=== PATIENT | male | born 1995 | race African-American/Black ===

== ENCOUNTER 2017-05-21 15:14 | Emergency (ER) | payer OTHER ==
--- NOTE | 2017-05-21 16:03 | REP ---
Head CT without contrast: History: Trauma. Comparison study: No comparison. CT findings: Bone window settings demonstrate an intact bony calvarium. There is no evidence of skull fracture or incidental bony calvarial lesion. The visualized paranasal sinuses appear clear. No intraorbital abnormality is seen. On soft tissue window setting images; the lateral, third, and fourth ventricles are normal in size and position. Arnold-white differentiation pattern is normal above and below the tentorium. There are is no evidence of intracranial hemorrhage. No mass, edema, infarction, or midline shift is seen. No extra-axial fluid collection is appreciated. Impression: Negative noncontrast head CT. Signed by Tin Warren MD 05/21/2017 03:54 P
--- NOTE | 2017-05-21 16:10 | REP ---
CT study of the cervical spine without contrast: History: Trauma. Technique: Helical scanning is acquired and overlapping 2 mm high resolution axial images were generated and reviewed at bone and soft tissue window settings. Coronal and sagittal multiplanar re-formations images are generated. CT findings: There is no evidence of cervical spine element fracture. No skull base fracture is seen. Cervical vertebral body heights are preserved. Alignment is normal. Facet joints are normally aligned bilaterally at each cervical level on multiplanar re-formations images. There is no evidence of intraspinal or paraspinal hematoma. No extra vertebral abnormality is seen. There is a central disc protrusion noted incidentally at the C4-5 disc. This disc shows slight narrowing. Impression: Central C4-5 disc protrusion noted with that C4-5 disc space narrowing. Otherwise negative CT study of the cervical spine without contrast. No fracture seen. Signed by Tin Warren MD 05/21/2017 03:58 P
[2017-05-21 16:46] VITALS: BP 141/83
== END 2017-05-21 17:42 | disposition home or self-care (01) ==
LOC: M ED 15:14 → EDBD 15:14 → M ED 17:42
DX: S06.0X0A Concussion without loss of consciousness, initial encounter (principal); V49.40XA Driver injured in collision with unspecified motor vehicles in traffic accident, initial encounter; Y92.410 Unspecified street and highway as the place of occurrence of the external cause; Y93.89 Activity, other specified; Y99.9 Unspecified external cause status

== ENCOUNTER → 2019-06-23 | Outpatient (REF) | payer OTHER ==
[2019-06-24 14:00] LABS: CHLAMYDIA DNA AMPLIFICATION POSITIVE (NEGATIVE); GC DNA AMPLIFICATION NEGATIVE (NEGATIVE)
== END ==
LOC: M SFHCLERA 19:19
PROVIDERS: ATTEND Physician Assistant
DX: R30.0 Dysuria (principal); R36.9 Urethral discharge, unspecified

== ENCOUNTER 2020-01-02 22:37 | Emergency (ER) | payer OTHER ==
[~2020-01-02] VITALS: Ht 188 cm; Wt 105.8 kg
[2020-01-02 23:25] LABS: INFLUENZA A AMPLIFICATION NEGATIVE (NEGATIVE); INFLUENZA B AMPLIFICATION NEGATIVE (NEGATIVE)
[2020-01-03] MEDS ORDERED: NS 1,000 ML IV ONE (00:15)
[2020-01-03] MEDS ORDERED: GI COCKTAIL 50ML BTL(HYOSCYAMINE/MAALOX/LIDOCAINE VISCOUS)(1:3:1) PO ONE (00:15)
[2020-01-03] MEDS ORDERED: ONDANSETRON 4MG/2ML VIAL (J2405) IV ONE (00:15)
[2020-01-03] MEDS ORDERED: KETOROLAC 30 MG/ML VIAL (J1885) IV ONE (00:15)
[2020-01-03] MEDS ORDERED: ALBUTEROL SULFATE 2.5 MG/0.5 ML INH NEB SOLN NEB ONE (00:15)
[2020-01-03 00:44] LABS: BASO % 0.4 % (0.0-1.0); EOS # 0.1 10^3/uL (0.0-0.5); EOS % 2.8 % (0.0-3.0); HEMATOCRIT 43.6 % (42.0-52.0); HEMOGLOBIN 14.2 g/dl (13.5-17.5); LYMPH # 1.5 10^3/uL (1.5-5.0); LYMPH % 29.2 % (24.0-44.0); MEAN CORPUSCULAR HEMOGLOBIN 30.5 pg (27.0-33.0); MEAN CORPUSCULAR HGB CONC 32.6 g/dl (32.0-36.5); MEAN CORPUSCULAR VOLUME 93.8 fl (80.0-96.0); MONO # 0.7 10^3/uL (0.0-0.8); MONO % 13.1 % (0.0-5.0); NEUTROPHILS # 2.7 10^3/uL (1.5-8.5); NEUTROPHILS % 54.3 % (36.0-66.0); PLATELET COUNT, AUTOMATED 219 10^3/uL (150-450); RED BLOOD COUNT 4.65 10^6/uL (4.30-6.10)
[2020-01-03 01:04] LABS: MONO SCRN NEGATIVE (NEGATIVE)
[2020-01-03] MEDS ORDERED: NAPR-837 PO (01:34)
[2020-01-03] MEDS ORDERED: PROAAER10 INH (01:34)
[2020-01-03] MEDS ORDERED: ONDA4TAB6 PO (01:34)
[2020-01-03] MEDS ORDERED: TESS100C PO (01:34)
[2020-01-03 01:40] VITALS: BP 141/78
--- NOTE | 2020-01-03 09:14 | REP ---
Chest x-ray: Two views. History: cough . Comparison study: No comparison study . Findings: The lungs are well inflated and free of infiltrate. The pleural angles are sharp. The heart size is normal. Pulmonary vasculature is not increased. No significant bony abnormality is seen. Impression: Negative chest x-ray. Electronically Signed by Tin Warren MD 01/03/2020 09:06 A
== END 2020-01-03 01:42 | disposition home or self-care (01) ==
LOC: M ED 22:37
DX: J02.9 Acute pharyngitis, unspecified (principal); R11.2 Nausea with vomiting, unspecified; R19.7 Diarrhea, unspecified; R05 Cough
CPT/HCPCS: 71046; 80047; 85025; 86308; 87502; 87880; 96361; 96374; 96375; 99284; J1885; J2405